=== PATIENT | female | born 1940 | race Caucasian/White ===

== ENCOUNTER → 2024-01-12 07:49 | Outpatient (REF) | payer MEDICARE, BC, SELFPAY ==
[2024-01-12 08:53] LABS: % Basophils 1.3 % (0-2); % Immature Granulocytes 0.4 % (0-0.5); % Monocytes 13.9 % (1.7-9.3); % Neutrophils 51.4 % (42.2-75.2); Absolute Basophils 0.1 10^3/uL (0-0.2); Absolute Eosinophils 0.3 10^3/uL (0-0.7); Absolute Lymphocytes 1.2 10^3/uL (1.2-3.4); Absolute Monocytes 0.7 10^3/uL (0.1-0.6); Absolute Neutrophils 2.4 10^3/uL (1.4-6.5); Hematocrit 40.6 % (37.0-47.0); Hemoglobin 13.3 g/dL (12.0-16.0); Mean Corp Hgb Conc. 32.8 g/dL (33.0-37.0); Mean Corpuscular Hgb 30.5 pg (27.0-31.0); Mean Corpuscular Volume 93.1 fL (81.0-99.0); Mean Platelet Volume 9.9 fL (7.4-10.4); Nucleated Red Blood Cells % 0 %; Platelet Count 212 10^3/uL (130-400); Red Blood Cell Count 4.36 10^6/uL (4.20-5.40); Red Cell Dist. Width 14.1 % (11.5-14.5); White Blood Cell Count 4.7 10^3/uL (4.8-10.8)
[2024-01-12 10:03] LABS: ALT (SGPT) 32 U/L (0-35); AST (SGOT) 42 U/L (14-36); Albumin 4.4 g/dl (3.5-5.0); Alkaline Phosphatase 75 U/L (38-126); Blood Urea Nitrogen 20 mg/dl (7-17); Calcium 9.6 mg/dl (8.4-10.2); Carbon Dioxide 31 mmol/L (22-30); Chloride 101 mmol/L (98-107); Direct Bilirubin 0.3 mg/dl (0.0-0.4); Glucose 83 mg/dl (70-99); HDL Cholesterol 88 mg/dl; LDH 167 U/L (120-246); LDL Cholesterol, Calculated 75 mg/dl; Potassium 4.2 mmol/L (3.5-5.1); Sodium 141 mmol/L (135-145); Total Bilirubin 0.5 mg/dl (0.2-1.3); Total Cholesterol 186 mg/dl (50-199); Total Protein 6.8 g/dl (6.3-8.2); Triglyceride 116 mg/dl (10-149); Very Low Density Lipoprotein 23 mg/dl (0-30); eGFR > 60.00
== END ==
LOC: REG 07:49
PROVIDERS: ATTENDING PHYSICIAN Internal Medicine; FAMILY PHYSICIAN Dermatology
DX: E78.5 Hyperlipidemia, unspecified (principal); Z85.820 Personal history of malignant melanoma of skin
CPT/HCPCS: 36415; 80053; 80061; 82248; 83615; 85025

== ENCOUNTER → 2024-07-21 07:32 | Outpatient (REF) | payer MEDICARE, BC, SELFPAY ==
[2024-07-21 08:30] LABS: % Basophils 1.1 % (0-2); % Eosinophils 4.7 % (0-6); % Immature Granulocytes 0.2 % (0-0.5); % Lymphocytes 23.8 % (20.5-51.1); % Monocytes 9.3 % (1.7-9.3); % Neutrophils 60.9 % (42.2-75.2); Absolute Basophils 0.1 10^3/uL (0-0.2); Absolute Eosinophils 0.3 10^3/uL (0-0.7); Absolute Lymphocytes 1.3 10^3/uL (1.2-3.4); Absolute Monocytes 0.5 10^3/uL (0.1-0.6); Absolute Neutrophils 3.4 10^3/uL (1.4-6.5); Hematocrit 40.9 % (37.0-47.0); Hemoglobin 13.4 g/dL (12.0-16.0); Mean Corp Hgb Conc. 32.8 g/dL (33.0-37.0); Mean Corpuscular Hgb 30.3 pg (27.0-31.0); Mean Corpuscular Volume 92.5 fL (81.0-99.0); Nucleated Red Blood Cells % 0 %; Platelet Count 204 10^3/uL (130-400); Red Blood Cell Count 4.42 10^6/uL (4.20-5.40); Red Cell Dist. Width 14.2 % (11.5-14.5); White Blood Cell Count 5.5 10^3/uL (4.8-10.8)
[2024-07-21 08:50] LABS: ALT (SGPT) 30 U/L (0-35); AST (SGOT) 39 U/L (14-36); Albumin 4.6 g/dl (3.5-5.0); Alkaline Phosphatase 76 U/L (38-126); Blood Urea Nitrogen 25 mg/dl (7-17); Calcium 9.3 mg/dl (8.4-10.2); Carbon Dioxide 32 mmol/L (22-30); Chloride 99 mmol/L (98-107); Direct Bilirubin 0.2 mg/dl (0.0-0.4); Glucose 88 mg/dl (70-99); HDL Cholesterol 97 mg/dl; LDH 167 U/L (120-246); LDL Cholesterol, Calculated 77 mg/dl; Potassium 4.4 mmol/L (3.5-5.1); Sodium 143 mmol/L (135-145); Total Bilirubin 0.6 mg/dl (0.2-1.3); Total Cholesterol 191 mg/dl (50-199); Total Protein 7.2 g/dl (6.3-8.2); Triglyceride 89 mg/dl (10-149); Very Low Density Lipoprotein 17 mg/dl (0-30); eGFR > 60.00
== END ==
LOC: REG 07:32
PROVIDERS: ATTENDING PHYSICIAN Dermatology; FAMILY PHYSICIAN Internal Medicine
DX: Z85.820 Personal history of malignant melanoma of skin (principal); I10 Essential (primary) hypertension; E78.5 Hyperlipidemia, unspecified
CPT/HCPCS: 36415; 80053; 80061; 82248; 83615; 85025

== ENCOUNTER → 2024-10-09 08:01 | Outpatient (REF) | payer MEDICARE, BC, SELFPAY | LOC: WOUND 08:01 | PROVIDERS: ATTENDING PHYSICIAN Surgery; FAMILY PHYSICIAN Internal Medicine | DX: L97.212 Non-pressure chronic ulcer of right calf with fat layer exposed (principal); I73.9 Peripheral vascular disease, unspecified; I87.2 Venous insufficiency (chronic) (peripheral); I10 Essential (primary) hypertension; Z85.820 Personal history of malignant melanoma of skin | CPT/HCPCS: 11042; 99204 ==

== ENCOUNTER → 2024-10-13 13:36 | Outpatient (REF) | payer MEDICARE, BC, SELFPAY | LOC: WDC 13:36 | PROVIDERS: ATTENDING PHYSICIAN Internal Medicine | DX: Z12.31 Encounter for screening mammogram for malignant neoplasm of breast (principal) | CPT/HCPCS: 77063; 77067 ==

== ENCOUNTER → 2024-10-16 08:38 | Outpatient (REF) | payer MEDICARE, BC, SELFPAY | LOC: WOUND 08:38 | PROVIDERS: ATTENDING PHYSICIAN Surgery; FAMILY PHYSICIAN Internal Medicine | DX: L97.212 Non-pressure chronic ulcer of right calf with fat layer exposed (principal); I73.9 Peripheral vascular disease, unspecified; I87.2 Venous insufficiency (chronic) (peripheral); I10 Essential (primary) hypertension; Z85.820 Personal history of malignant melanoma of skin | CPT/HCPCS: 11042 ==

== ENCOUNTER → 2024-10-18 08:16 | Outpatient (REF) | payer MEDICARE, BC, SELFPAY | LOC: RAD 08:16 | PROVIDERS: ATTENDING PHYSICIAN Surgery; FAMILY PHYSICIAN Internal Medicine | DX: L97.212 Non-pressure chronic ulcer of right calf with fat layer exposed (principal); I73.9 Peripheral vascular disease, unspecified; I87.2 Venous insufficiency (chronic) (peripheral) | CPT/HCPCS: 93922; 93971 ==

== ENCOUNTER → 2024-10-23 08:39 | Outpatient (REF) | payer MEDICARE, BC, SELFPAY | LOC: WOUND 08:39 | PROVIDERS: ATTENDING PHYSICIAN Surgery; FAMILY PHYSICIAN Internal Medicine | DX: L97.212 Non-pressure chronic ulcer of right calf with fat layer exposed (principal); I73.9 Peripheral vascular disease, unspecified; I87.2 Venous insufficiency (chronic) (peripheral); I10 Essential (primary) hypertension; Z85.20 Personal history of malignant neoplasm of unspecified respiratory organ | CPT/HCPCS: 11042 ==

== ENCOUNTER → 2024-10-31 08:35 | Outpatient (REF) | payer MEDICARE, BC, SELFPAY | LOC: WOUND 08:35 | PROVIDERS: ATTENDING PHYSICIAN Surgery; FAMILY PHYSICIAN Internal Medicine | DX: L97.212 Non-pressure chronic ulcer of right calf with fat layer exposed (principal); I73.9 Peripheral vascular disease, unspecified; I87.2 Venous insufficiency (chronic) (peripheral); I10 Essential (primary) hypertension; Z85.820 Personal history of malignant melanoma of skin | CPT/HCPCS: 11042 ==

== ENCOUNTER → 2024-11-06 08:37 | Outpatient (REF) | payer MEDICARE, BC, SELFPAY | LOC: WOUND 08:37 | PROVIDERS: ATTENDING PHYSICIAN Surgery; FAMILY PHYSICIAN Internal Medicine | DX: L97.212 Non-pressure chronic ulcer of right calf with fat layer exposed (principal); I73.9 Peripheral vascular disease, unspecified; I87.2 Venous insufficiency (chronic) (peripheral); I10 Essential (primary) hypertension; Z85.820 Personal history of malignant melanoma of skin | CPT/HCPCS: 36415; 80048; 85025; 85610; 85730; 93005; 99213 ==

== ENCOUNTER 2024-11-14 09:13 | Day surgery (SDC) | payer MEDICARE, BC, SELFPAY ==
[2024-11-06 09:34] VITALS: BMI 24.0
[2024-11-14] VITALS (22 sets, daily range): BP systolic 95–164; BP diastolic 52–110
[2024-11-14] MEDS: NSS 500 IV (10:50)
--- NOTE | 2024-11-14 11:15 | W.SUR.PREOP ---
Pre-Operative Surgical Note
-
I have examined this patient prior to the performance of the scheduled procedure.
The patient's condition is unchanged from the time of the current History and
Physical and the patient is able to undergo the scheduled procedure.
[2024-11-14] MEDS: ASPIRIN 325 MG PO (13:48)
[2024-11-14] MEDS: PLAVIX 300 MG PO (13:48)
--- NOTE | 2024-11-14 14:11 | OR.RPT ---
Operative Report
Operative Report
Date of Operation: 11/14/2024
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
Procedure:
1.) Intravascular lithotripsy to right popliteal artery occlusion and right superficial femoral artery stenoses (6 mm x 80 mm E8 shockwave balloon)
2.) Balloon angioplasty and stenting of right popliteal artery and superficial femoral artery (2 overlapping 6 mm x 150 mm Life Stents)
3.) Diagnostic aortobiiliac arteriogram
4.) Diagnostic right lower extremity arteriogram
5.) Ultrasound-guided percutaneous access to the left common femoral artery
6.) Pro-glide closure of left common femoral artery access
Surgeon: Rusty Norris III, MD
Metal Door Assembler: Tyler Coleman MD PGY1
Anesthesia: Sedation with local
Fluoroscopy:
32 min
89 mGy
23 gy.cm2
Complications: None
Estimated Blood Loss: Less than 10 cc
History and Indications for Procedure: 84-year-old female with limb threatening ischemia manifested by nonhealing ulceration of the right ortega
Procedure in Detail: Laura Wilkerson was correctly identified and placed supine on the operating table. After adequate induction of anesthesia the bilateral groins were prepped and draped in the usual sterile fashion. A timeout was performed with the
nursing and anesthesia staff confirming the patient's identity as well as the nature and laterality of the procedure.
The left common femoral artery was identified under ultrasound guidance. The artery was patent. The superior and inferior aspects of the femoral head were identified with radiographic guidance and marked at the skin level. The proposed puncture site
was infiltrated with local anesthesia. Under ultrasound guidance we accessed the left common femoral artery with a micropuncture needle and upsized to a 5 Fr sheath over a Bentson wire. The wire and a She[employer] Portal (CAP) hook flush catheter were advanced into
the distal abdominal aorta and a diagnostic aorto-biiliac arteriogram was performed:
AORTO-ILIAC ARTERIOGRAM:
Aorta: Diffusely calcified. Patent with no significant stenosis identified
Right common iliac artery: Patent with no significant stenosis identified
Right external iliac artery: Patent with no significant stenosis identified
Left common iliac artery: Patent with no significant stenosis identified
Left external iliac artery: Patent with no significant stenosis identified
Under roadmap guidance using a Glidewire and the She[employer] Agent Portal (CAP) hook catheter we selected the right common iliac artery and then the external iliac artery. A catheter was tracked up and over the aortic bifurcation and placed in the distal external iliac
artery. A diagnostic right lower extremity arteriogram was then performed which demonstrated the following:
RIGHT LOWER EXTREMITY:
Common femoral artery: Patent with no significant stenosis identified
Profunda femoral artery: Patent with no significant stenosis identified
Superficial femoral artery: Scattered peripheral calcification throughout. Scattered areas of moderate to high-grade stenosis throughout.
Popliteal artery: Occlusion of the above-knee popliteal artery with reconstitution behind the knee. Below the knee segment patent with no significant stenosis identified
Anterior tibial artery: Patent with no significant stenosis identified.
Tibioperoneal trunk: Patent
Peroneal artery: Patent
Posterior tibial artery: Occluded with no distal reconstitution identified
ENDOVASCULAR INTERVENTION: Systemic heparin was administered. Exchanged out for a 6 Fr 45 cm sheath over a [employer] wire. Selected the superficial femoral artery under roadmap guidance with 035 SPEX catheter and glidewire. The SFA was crossed with
this approach. Under roadmap guidance the popliteal artery occlusion was crossed with a 0.014 Mongo wire and 0.014 support catheter. The wire and catheter were advanced into the below-knee artery and subtraction angio confirmed proper position in
the true lumen. The popliteal artery occlusion was predilated with a 4 mm x 80 mm angioplasty balloon. Due to the calcified nature of the superficial femoral and popliteal artery artery disease and in an effort to modify the calcium to achieve
maximum luminal gain with endovascular intervention I elected to proceed with intravascular lithotripsy. A 6 mm x 80 mm E8 Shockwave balloon was placed across the popliteal occlusion under roadmap guidance. Alternating rounds of lithotripsy pulse
delivery at sub-nominal pressure and angioplasty at nominal pressure was performed across the stenosis. In between rounds of pulse delivery and angioplasty the balloon was deflated and repositioned under roadmap guidance. The popliteal artery
occlusion behind the knee and above the knee as well as the entire superficial femoral artery were treated with this approach. All 400 pulses were delivered.
Subsequent arteriogram demonstrated an improved but suboptimal result. Areas of flow-limiting dissection were identified. I therefore treated the residual popliteal artery and superficial femoral artery disease with 2 overlapping 6 mm x 150 mm
LifeStents. Each of these was positioned in the desired location and deployed. The entire length of the stents was profiled with a 5 mm angioplasty balloon.
COMPLETION ARTERIOGRAM: Excellent technical result. Widely patent superficial femoral artery and popliteal artery with brisk flow. Widely patent stents with no residual stenosis identified. Brisk outflow through the anterior tibial artery and
peroneal artery with flow into the foot identified through the anterior tibial/dorsalis pedis artery.
Satisfied with this result we concluded the procedure. The sheath tip was pulled back into the left external iliac artery. Protamine was administered. A single Pro-glide closure device was used to obtain hemostasis at the left common femoral
artery access site. A sterile dressing was applied.
The patient tolerated the procedure well and was taken to the recovery area in stable condition.
Attestation: I was present and responsible for the entire procedure.
Signed:
Rusty Norris III, MD
Vascular Surgery
[facility]
--- NOTE | 2024-11-14 15:51 | PTCARENOTE ---
Received pt from PACU, pt's O2 sats in mid 80's, pt placed on 2L NC O2, encouraged to cough and deep breathe. Will continue to monitor, will continue to ween off of O2.
1535 pt sat up 30 degrees, attempted to remove O2 unsuccessfully, KETTLE OPERATOR Mitch notified, incentive spirometer given to patient and taught to use. Will reassess O2 status.
== END 2024-11-14 17:45 | disposition home or self-care (01) ==
LOC: CATH 09:13
PROVIDERS: ATTENDING PHYSICIAN Surgery Vascular Surgery; FAMILY PHYSICIAN Internal Medicine; OTHER PHYSICIAN Internal Medicine Cardiovascular Disease
DX: I70.238 Atherosclerosis of native arteries of right leg with ulceration of other part of lower leg (principal); L97.819 Non-pressure chronic ulcer of other part of right lower leg with unspecified severity; Z79.82 Long term (current) use of aspirin; I10 Essential (primary) hypertension; Z87.891 Personal history of nicotine dependence; E78.00 Pure hypercholesterolemia, unspecified
CPT/HCPCS: C9765; 71045; 75625; 75716; C1725; C1760; C1769; C1876; C1894; Q9967

== ENCOUNTER → 2024-11-23 09:22 | Outpatient (REF) | payer MEDICARE, BC, SELFPAY | LOC: WOUND 09:22 | PROVIDERS: ATTENDING PHYSICIAN Surgery; FAMILY PHYSICIAN Internal Medicine | DX: L97.212 Non-pressure chronic ulcer of right calf with fat layer exposed (principal); I73.9 Peripheral vascular disease, unspecified; I87.2 Venous insufficiency (chronic) (peripheral); I10 Essential (primary) hypertension; Z85.820 Personal history of malignant melanoma of skin | CPT/HCPCS: 11042 ==

== ENCOUNTER 2024-11-28 11:28 | Emergency (ER) | payer MEDICARE, BC, SELFPAY ==
[2024-11-28] VITALS (8 sets, daily range): BP systolic 98–171; BP diastolic 66–112; BMI 24.4
[2024-11-28 12:52] LABS: % Basophils 1.5 % (0-2); % Eosinophils 3.9 % (0-6); % Immature Granulocytes 0.2 % (0-0.5); % Lymphocytes 25.4 % (20.5-51.1); % Monocytes 14.6 % (1.7-9.3); % Neutrophils 54.4 % (42.2-75.2); Absolute Basophils 0.1 10^3/uL (0-0.2); Absolute Eosinophils 0.2 10^3/uL (0-0.7); Absolute Lymphocytes 1.2 10^3/uL (1.2-3.4); Absolute Monocytes 0.7 10^3/uL (0.1-0.6); Absolute Neutrophils 2.5 10^3/uL (1.4-6.5); Hematocrit 41.7 % (37.0-47.0); Hemoglobin 13.7 g/dL (12.0-16.0); Mean Corp Hgb Conc. 32.9 g/dL (33.0-37.0); Mean Corpuscular Hgb 30.2 pg (27.0-31.0); Mean Corpuscular Volume 91.9 fL (81.0-99.0); Mean Platelet Volume 9.7 fL (7.4-10.4); Nucleated Red Blood Cells % 0 %; Platelet Count 259 10^3/uL (130-400); Red Blood Cell Count 4.54 10^6/uL (4.20-5.40); Red Cell Dist. Width 14.5 % (11.5-14.5); White Blood Cell Count 4.6 10^3/uL (4.8-10.8)
[2024-11-28 12:53] LABS: Urine Albumin Negative (Neg - Trace); Urine Bilirubin Negative (Negative); Urine Character Clear (Clear); Urine Color Straw; Urine Glucose Negative (Negative); Urine Ketone Negative (Negative); Urine Leukocyte Negative (Negative); Urine Nitrite Negative (Negative); Urine Occult Blood Negative (Negative); Urine Urobilinogen Negative (Neg - 1+); Urine pH 6.5 (5.0-9.0)
[2024-11-28 13:11] LABS: ALT (SGPT) 21 U/L (0-35); AST (SGOT) 30 U/L (14-36); Albumin 4.8 g/dl (3.5-5.0); Alkaline Phosphatase 82 U/L (38-126); Blood Urea Nitrogen 20 mg/dl (7-17); Calcium 9.5 mg/dl (8.4-10.2); Carbon Dioxide 29 mmol/L (22-30); Chloride 105 mmol/L (98-107); Estimated Creatinine Clearance 51 ml/min; Glucose 103 mg/dl (70-99); Potassium 3.9 mmol/L (3.5-5.1); Sodium 142 mmol/L (135-145); Total Bilirubin 0.6 mg/dl (0.2-1.3); Total Protein 7.6 g/dl (6.3-8.2); eGFR > 60.00
[2024-11-28] MEDS: DUONEB 3 ML INH (13:27)
--- NOTE | 2024-11-28 13:31 | ED.GENMED ---
History of Present Illness
General
Chief Complaint: Breathing Problem
Source: patient
Exam Limitations: none
Time Seen by Provider: 11/28/24 12:24
Nursing documentation reviewed up to this point in time: agreed with
History of Present Illness
History of Present Illness:
Patient is an 84-year-old female with history PVD, hypertension, hyperlipidemia who presents the emergency department for evaluation of shortness of breath and fatigue. Patient states that symptoms seem to start following her vascular procedure on
11/14/[address] Norris. At that time�patient had an intravascular lithotripsy and balloon angioplasty/stenting of the right popliteal artery and was started on Plavix. She states that the symptoms have been progressively worsening since his
procedure and she believes it may be due to the Plavix.
Describes a generalized weakness and fatigue. She also reports dyspnea, worse with exertion. She does report very mild chest tightness which has been relatively constant over the past 2 weeks. No clear exertional component to chest tightness.
Patient denies any fever or cough. She denies any lower extremity swelling.
She did contact the office of her vascular surgeon who recommended evaluation in the emergency department.
Past History
Past History
ED Past Medical History: HTN, Hypercholesterolemia and Other (OA)
ED Past Surgical History: Orthopedic
Social History
Tobacco: Non-smoker
Personal:
Review of Systems
Review of Systems
Allergies reviewed?: Yes
All Other Systems: ROS reviewed and negative except as documented in HPI and ROS
Phy Exam
Physical Exam
Physical Exam:
Vitals: Hypertensive, otherwise stable vital signs.
General: Patient is well appearing, no acute distress
Skin: Warm and dry, no rashes or lesions
Head: Normocephalic, atraumatic
Eyes: Sclera nonicteric.
Throat: Protecting airway
Neck: Normal ROM, no cervical spine tenderness, no meningismus. No JVD.
Cardiac: Regular rate and rhythm, no murmurs.
Pulm: No apparent respiratory distress. Mild expiratory wheeze. No rales.
.
Abdomen: No abdominal tenderness.
Extremities: No evidence of cyanosis or edema. Palpable DP and PT pulses of b/l lower extremities. Small healing wound on right lateral lower leg without evidence of surrounding cellulitis.
Neuro: AAOx3. Grossly intact.
Psychiatric: Normal affect.
Scores
Heart Failure Risk
Heart Failure Risk Score: Not Applicable
Course
Orders/Labs/Results
Orders:
Orders
11/28/24 11:30
EKG [Electrocardiogram (*1)] Urgent
Reason for Study: Chest Pain
EKG- Treatment ONCE
11/28/24 12:41
CMP [Comprehensive Metabolic Panel] Urgent
Complete Blood Count/With Diff Urgent
Urinalysis Reflex To Culture Urgent
Date Specimen was Collected: 11/28/24
Time Specimen was Collected: 12:40
11/28/24 12:56
CT Chest PE Study Urgent
Comment:
Reason For Exam: SOB, recent operation
Ipratropium/Albuterol Sulfate [Duoneb] 3 ml INH R NOW STA
11/28/24 13:05
COVID-19 Antigen Urgent
Source: Nasal Swab
NT-proBNP Urgent
Troponin I Urgent
Influenza A+B Rapid Molecular Urgent
CARY Source: Nasal Swab
Specimen Description:
11/28/24 17:07
Dexamethasone Sod Phosphate [Decadron] 10 mg IV NOW STA
Abnormal Lab Results
11/28/24
12:41
WBC 4.6 L 10^3/uL
(4.8-10.8)
MCHC 32.9 L g/dL
(33.0-37.0)
Absolute Monos (auto) 0.7 H 10^3/uL
(0.1-0.6)
Monocytes % 14.6 H %
(1.7-9.3)
BUN 20 H mg/dl
(7-17)
Glucose 103 H mg/dl
(70-99)
11/28/24 12:41
11/28/24 12:41
Vital Signs
Initial and Last Documented VS:
Initial Vital Signs
Temp Pulse Resp BP Pulse Ox
97.6 F 84 16 171/92 95
11/28/24 11:35 11/28/24 11:35 11/28/24 11:35 11/28/24 11:35 11/28/24 11:35
Last Documented Vital Signs
Temp Pulse Resp BP Pulse Ox
97.6 F 81 29 151/109 91
11/28/24 11:35 11/28/24 15:15 11/28/24 15:15 11/28/24 17:00 11/28/24 17:15
MDM/Problems Addressed
Differential Diagnosis Includes:
Not limited to: acute dehydration, pleural effusion, congestive heart failure, bronchitis, viral syndrome, medication side effect, pulmonary embolism, etc
MDM/Problems Addressed:
84 y.o F w/ hx as documented presenting with about 2 weeks of progressively worsening shortness of breath and fatigue. Also notes some chest tightness. No fever, lower leg swelling, or hemoptysis. Patient is approximately 2 weeks s/p vascular
arterial procedure in RLE with stent placement. She was started on Plavix following procedure and feels symptoms may be secondary to medication side effect. Vitals and physical exam as above. Differential broad at this time. Will check basic
labs, viral swabs. Given recent surgical procedure�will check CTA chest rule out PE. Lower suspicion for ACS however will check troponin. Given mild wheezing noted on exam, will treat with DuoNeb and reassess.
Update: Workup in ED negative. EKG reviewed with attending which shows no acute ischemic changes. Troponin negative. CT a chest without acute findings. No evidence of pulmonary embolism. Viral swabs negative. Labs with mild leukopenia,
otherwise no clinically significant abnormalities. Patient did get some improvement in symptoms following DuoNeb. Symptoms possibly secondary to a viral bronchitis. Considered possible side effect from Plavix though I feel this is less likely.
Patient overall comfortable and well-appearing. She is in no respiratory distress. She has been ambulating around room without difficulty.
Case was discussed with vascular surgery on-call, Dr. Coffman who has relatively low suspicion that symptoms are secondary to Plavix. Recommended continued outpatient follow-up. Given recent stent placement�discussed importance of continuing Plavix.
Patient expressed verbal understanding. At this point, feel patient stable for discharge home with continued primary care/vascular surgery follow-up outpatient. Very strict return precautions discussed. Case discussed with attending physician.
Chronic conditions affecting care:
Recent angioplasty and stent placement in right popliteal artery
Acute Exacerbation and/or Progression of Chronic Illness:
N/A
*Radiology
Radiology exam reviewed: radiology read reviewed
*Pulse Oximetry
Patient hypoxic: no
*EKG
Interpreted by ED Provider?: Yes
EKG Intrepretation Date: 11/28/24
Interpretation: abnormal
Comparison EKG: changes noted
Heart Rate: 78
Rate: normal
Rhythm: sinus arrhythmia
[place]: left axis deviation
Interval: normal QT interval
QRS Pattern: right bundle branch block
Ischemia: no ischemia
*Duplication Specialist Interpretation
Rate: normal
Interpretation: abnormal
Heart Rate: 82
Rhythm: PVC's
*Critical Care Note
Total Time (30-74mins, 75-104mins- exclusive of procedures): Not Applicable
Data Reviewed
Review of Other/Old Records Reveals: Operative Reports (Operative report by Dr. Norris 11/14/24)
Source: previous hospital records
Patient Management
Discussion with other providers: Clinical Training Specialist (Case discussed w/ vascular surgery)
Escalation/DeEscalation of care consider admission/obs:
Admit not indicated
ED Attending Note
-
Portions of this chart may have been created with voice recognition software.� Occasional wrong word or��sound alike� substitutions may have occurred due to the inherent limitations of voice recognition software.
Discharge Plan
Departure
Patient Disposition: Home (Routine Discharge)
Date of Disposition: 11/28/24
Time of Disposition: 17:15
Patient with high blood pressure during this ER visit?: Yes
Condition: Good
Covid-19: Negative COVID-19
Discharge Problem:
Dyspnea, Fatigue
Instructions: Fatigue (DC), Shortness of Breath (Dyspnea) (DC), BLOOD PRESSURE
Prescriptions:
No Action
doxycycline hyclate 20 MG tablet
20 mg PO BID
rosuvastatin 10 MG tablet
10 mg PO QPM
loratadine 10 MG tablet
10 mg PO DAILY PRN (Reason: Allergies)
coenzyme Q10 [CoQ-10] 100 mg Capsule
100 mg PO BID
metoprolol succinate 12.5 MG tablet extended release 24 hr
25 mg PO DAILY
diclofenac sodium 75 MG tablet,delayed release (DR/EC)
75 mg PO BID Qty: 30 0RF
Rx Instructions:
*TAKE WITH FOOD
*DO NOT BEGIN UNTIL STEROID TAPER (PREDNISONE) IS D/C
multivitamin Tablet
1 tab PO DAILY
amlodipine [Norvasc] 5 mg Tablet
5 mg PO DAILY
calcium carbonate [Calcium 500] 500 mg calcium (1,250 mg) Tablet,Chewable
500 mg PO DAILY
aspirin 81 mg Tablet
81 mg PO HS
diphenhydramine-acetaminophen [Tylenol PM Extra Strength] 25-500 mg Tablet
2 tab PO HS
melatonin 10 mg Tablet
3 mg PO HS
pyridoxine (vitamin B6)
1 tab PO DAILY
famotidine 40 mg Tablet
40 mg PO HS PRN (Reason: Heartburn)
Christa Fusion Calcium +D3
1 tab PO BID
clopidogrel 75 mg Tablet
75 mg PO DAILY Qty: 90 0RF
Referrals:
Rusty Norris III, MD [Active, Vascular Surgery] - Call in 1-3 days for appt
Darrius Palacios MD [Family Provider, Internal Medicine] - Follow up in 2-3 days
Activity Restrictions/Additional Instructions:
RETURN TO THE EMERGENCY DEPARTMENT WITH ANY FEVER, CHILLS, PRODUCTIVE COUGH, CHEST TIGHTNESS, SHORTNESS OF BREATH/DIFFICULTY BREATHING, WORSENING WEAKNESS, NUMBNESS/TINGLING IN RIGHT LOWER EXTREMITY, OR ANY OTHER CONCERNS
- As discussed�your workup in the emergency department showed no acute abnormalities including lab work, cardiac enzymes, urinalysis. You were given a copy of your CT report which you should review with your primary care for further follow-up as
needed
- It is important stay well hydrated. Get plenty of rest.
- As discussed�it is very important that you continue your Plavix as prescribed by the vascular surgeon. Follow-up with vascular for further evaluation/management.
Monitor your symptoms closely and return to the emergency department with any acute worsening/new symptoms or any other concerns
Interventions
Interventions:
*Risk Screen - Suicide Last Done: 11/28/24 11:35
*General Assessment Last Done: 11/28/24 11:35
*Neglect/Abuse Screening Last Done: 11/28/24 11:35
*ED- Fall Risk Assessment Last Done: 11/28/24 12:29
*ED COVID-19 Vaccine History Last Done: 11/28/24 12:29
*Nursing Disposition Last Done: 11/28/24 17:37
ED- Cardiac Assessment Last Done: 11/28/24 12:29
ED- Pulmonary Assessment Last Done: 11/28/24 12:29
Discharge Date and Time
Discharge Date/Time: 11/28/24 17:33
Print Language: URDU
[2024-11-28 13:40] LABS: COVID-19 Antigen Negative (Negative)
[2024-11-28 13:49] LABS: NT-proBNP 738 pg/ml; Troponin I < 0.012 ng/ml
[2024-11-28] MEDS: DECADRON 10 MG IV (17:28)
== END 2024-11-28 17:33 | disposition home or self-care (01) ==
LOC: EMR 11:28
PROVIDERS: Physician Assistant; EMERGENCY PHYSICIAN Emergency Medicine; FAMILY PHYSICIAN Internal Medicine
DX: R06.00 Dyspnea, unspecified (principal); R53.83 Other fatigue; I10 Essential (primary) hypertension; E78.00 Pure hypercholesterolemia, unspecified; I73.9 Peripheral vascular disease, unspecified; Z11.52 Encounter for screening for COVID-19
CPT/HCPCS: 94640; 96374; 99284; 71275; 80053; 81003; 83880; 84484; 85025; 87502; 87811; 93005; Q9967

== ENCOUNTER → 2024-12-08 13:51 | Outpatient (REF) | payer MEDICARE, BC, SELFPAY | LOC: RAD 13:51 | PROVIDERS: ATTENDING PHYSICIAN Surgery Vascular Surgery; FAMILY PHYSICIAN Internal Medicine | DX: I73.9 Peripheral vascular disease, unspecified (principal) | CPT/HCPCS: 93922; 93925 ==

== ENCOUNTER → 2024-12-14 08:32 | Outpatient (REF) | payer MEDICARE, BC, SELFPAY | LOC: WOUND 08:32 | PROVIDERS: ATTENDING PHYSICIAN Surgery; FAMILY PHYSICIAN Internal Medicine | DX: L97.212 Non-pressure chronic ulcer of right calf with fat layer exposed (principal); I73.9 Peripheral vascular disease, unspecified; I87.2 Venous insufficiency (chronic) (peripheral); I10 Essential (primary) hypertension; Z85.820 Personal history of malignant melanoma of skin | CPT/HCPCS: 11042 ==

== ENCOUNTER → 2024-12-28 13:26 | Outpatient (REF) | payer MEDICARE, BC, SELFPAY | LOC: WOUND 13:26 | PROVIDERS: ATTENDING PHYSICIAN Surgery; FAMILY PHYSICIAN Internal Medicine | DX: L97.212 Non-pressure chronic ulcer of right calf with fat layer exposed (principal); I73.9 Peripheral vascular disease, unspecified; I87.2 Venous insufficiency (chronic) (peripheral); I10 Essential (primary) hypertension; Z85.820 Personal history of malignant melanoma of skin | CPT/HCPCS: 99212 ==

== ENCOUNTER → 2025-01-11 07:26 | Outpatient (REF) | payer MEDICARE, BC, SELFPAY ==
[2025-01-11 10:09] LABS: ALT (SGPT) 23 U/L (0-35); AST (SGOT) 31 U/L (14-36); Albumin 4.5 g/dl (3.5-5.0); Alkaline Phosphatase 64 U/L (38-126); HDL Cholesterol 104 mg/dl; LDL Cholesterol, Calculated 76 mg/dl; Total Protein 7.1 g/dl (6.3-8.2); Very Low Density Lipoprotein 15 mg/dl (0-30)
== END ==
LOC: REG 07:26
PROVIDERS: ATTENDING PHYSICIAN Internal Medicine
DX: E78.5 Hyperlipidemia, unspecified (principal); I10 Essential (primary) hypertension
CPT/HCPCS: 36415; 80061; 80076

== ENCOUNTER → 2025-02-27 08:36 | Outpatient (REF) | payer MEDICARE, BC, SELFPAY | LOC: RAD 08:36 | PROVIDERS: ATTENDING PHYSICIAN Registered Nurse; FAMILY PHYSICIAN Internal Medicine | DX: I77.9 Disorder of arteries and arterioles, unspecified (principal) | CPT/HCPCS: 93922 ==